=== PATIENT | female | born 1995 | race Caucasian/White ===

== ENCOUNTER 2018-05-31 16:04 | Emergency (ER) | payer MEDICAID ==
[~2018-05-31] VITALS: Ht 167.6 cm; Wt 111.0 kg
[2018-05-31 16:12] VITALS: Ht 167.6 cm; Wt 111.0 kg
[2018-05-31] MEDS ORDERED: NITR-58 PO (22:21)
--- NOTE | 2018-05-31 22:28 | ERD ---
ER Documentation Chief Complaint Chief Complaint pt bib family with c/o vag bleeding approx 6 wks HPI 22-year-old who presents for vaginal bleeding times 2 days. She is currently 6 weeks . She said the bleeding is mild. She is A0. She denies any fevers or chills. She states that she saw her LOAD OUT PERSON about 3 days ago prior to the bleeding and ultrasound done at the time was normal. Past medical history of anemia and celiac disease. ROS All systems reviewed and are negative except as per history of present illness. Medications Home Meds Active Scripts Nitrofurantoin Monohyd Macrocr* (Macrobid*) 100 Mg Capsr, 100 MG PO BID for bacteruria for 5 Days, #10 CAP Prov:ALEX HICKS DO 05/31/18 Allergies Allergies: Coded Allergies: No Known Allergy (Unverified , 05/31/18) PMhx/Soc Medical and Surgical Hx: pt denies Surgical Hx Hx Miscellaneous Medical Probl: Yes (celiac ds, anemia) Hx Alcohol Use: No Hx Substance Use: No Hx Tobacco Use: No Smoking Status: Never smoker Physical Exam Vitals Vital Signs Date Temp Pulse Resp B/P (MAP) Pulse Ox O2 O2 Flow FiO2 Time Delivery Rate 05/31/18 98.3 74 18 136/82 100 16:12 (100) Physical Exam Const: No acute distress Resp: Clear to auscultation bilaterally Cardio: Regular rate and rhythm, no murmurs Abd: Soft, non tender, non distended. Normal bowel sounds Skin: No petechiae or rashes Back: No midline or flank tenderness Ext: No cyanosis, or edema Neur: Awake and alert Psych: Normal Mood and Affect Result Diagram: 05/31/182010 Results 24 hrs Laboratory Tests Test 05/31/18 20:11 White Blood Count 9.1 10^3/ul Red Blood Count 4.51 10^6/ul Hemoglobin 13.5 g/dl Hematocrit 39.9 % Mean Corpuscular Volume 88.5 fl Mean Corpuscular Hemoglobin 29.9 pg Mean Corpuscular Hemoglobin Concent 33.8 g/dl Red Cell Distribution Width 11.9 % Platelet Count 233 10^3/UL Mean Platelet Volume 9.6 fl Immature Granulocytes % 0.300 % Neutrophils % 59.9 % Lymphocytes % 30.2 % Monocytes % 8.0 % Eosinophils % 0.9 % Basophils % 0.7 % Nucleated Red Blood Cells % 0.0 /100WBC Immature Granulocytes # 0.030 10^3/ul Neutrophils # 5.5 10^3/ul Lymphocytes # 2.8 10^3/ul Monocytes # 0.7 10^3/ul Eosinophils # 0.1 10^3/ul Basophils # 0.1 10^3/ul Nucleated Red Blood Cells # 0.0 10^3/ul Urine Color STRAW Urine Clarity CLEAR Urine pH 8.0 Urine Specific [place] 1.005 Urine Ketones NEGATIVE mg/dL Urine Nitrite NEGATIVE mg/dL Urine Bilirubin NEGATIVE mg/dL Urine Urobilinogen NEGATIVE mg/dL Urine Leukocyte Esterase 1+ Alexey/ul Urine Microscopic RBC 1 /HPF Urine Microscopic WBC 9 /HPF Urine Squamous Epithelial Cells FEW /HPF Urine Hemoglobin 3+ mg/dL Urine Glucose NEGATIVE mg/dL Urine Total Protein NEGATIVE mg/dl Beta HCG, Quantitative 95434.0 mIU/ml Procedures/MDM Medical Decision Making: Differential diagnosis includes but not limited to spontaneous , ovarian cyst, uterine fibroid, ectopic . Patient appeared well on physical examination. CBC showed no anemia, no elevated WBC to suggest systemic infection. UA did show some bacteria [place] [id number] Pelvic ultrasound showed single live intrauterine with small subcho rionic hemorrhage noted with heart rate 128 Patient advised she will need follow-up with LOAD OUT PERSON closely for likely repeat ultrasounds to follow-up on the small subchorionic hemorrhage. Patient advised if she continues to have vaginal bleeding to return to the ER in 48 hours for repeat beta-hCG level. Given bacteriuria and current patient given prescription for Macrobid. Patient advised to follow up with PCP in 1-2 days. Patient advised to return to ED for new or worsening symptoms. Patient stable on discharge from the ED. Disclaimer: Inadvertent spelling and grammatical errors are likely due to EHR/dictation software use and do not reflect on the overall quality of patient care. Also, please note that the electronic time recorded on this note does not necessarily reflect the actual time of the patient encounter. Departure Diagnosis: Primary Impression: Vaginal bleeding in patient at less than 20 weeks ges... Additional Impression: Asymptomatic bacteriuria Condition: Fair Patient Instructions: Bleeding During Early Referrals: COMM[facility]ITY CLINICS YOU HAVE RECEIVED A MEDICAL SCREENING EXAM AND THE RESULTS INDICATE THAT YOU DO NOT HAVE A CONDITION THAT REQUIRES URGENT TREATMENT IN THE EMERGENCY DEPARTMENT. FURTHER EVALUATION AND TREATMENT OF YOUR CONDITION CAN WAIT UNTIL YOU ARE SEEN IN YOUR DOCTORS OFFICE WITHIN THE NEXT 1-2 DAYS. IT IS YOUR RESPONSIBILITY TO MAKE AN APPOINTMENT FOR FOLOW-UP CARE. IF YOU HAVE A PRIMARY DOCTOR --you should call your primary doctor and schedule an appointment IF YOU DO NOT HAVE A PRIMARY DOCTOR YOU CAN CALL OUR PHYSICIAN REFERRAL HOTLINE AT IF YOU CAN NOT AFFORD TO SEE A PHYSICIAN YOU CAN CHOSE FROM THE FOLLOWING [facility] [address] [facility]. [facility] [address] [facility] [address] [facility]. [facility] [address] [facility]. [facility] [address] [facility]. [facility]. [address] Additional Instructions: Call your primary care doctor TOMORROW for an appointment during the next 1-2 days.See the doctor sooner or return here if your condition worsens before your appointment time. Return to ER in 2 days for repeat bHCG. ALEX HICKS DO May 31, 2018 22:28
[2018-05-31 22:36] VITALS: BP 122/76; PULSE 76; RESP 16
== END 2018-05-31 22:36 | disposition home or self-care (01) ==
LOC: FTE 16:04
DX: O20.9 Hemorrhage in early pregnancy, unspecified (principal); Z13.89 Encounter for screening for other disorder; Z3A.01 Less than 8 weeks gestation of pregnancy
CPT/HCPCS: 36415; 76801; 81001; 84702; 85025; 86900; 86901

== ENCOUNTER 2018-09-16 18:50 | Emergency (ER) | payer BC, MEDICAID ==
[~2018-09-16] VITALS: Ht 167.6 cm; Wt 106.8 kg
[~2018-09-16 18:50] MED LIST: NITR-58 PO
[2018-09-16 18:52] VITALS: Ht 167.6 cm; Wt 106.8 kg
[2018-09-16] MEDS ORDERED: ONDANSETRON (ODT) 4 MG TAB ODT STA (20:00)
[2018-09-16] MEDS ORDERED: LIDOCAINE/MYLANTA 40 ML BTL PO ONE (20:00)
--- NOTE | 2018-09-16 20:10 | ERD ---
ER Documentation Chief Complaint Chief Complaint 22WKS;CLEARDED BY OB;DIZZINESS ON/OFF 3MONTHS; [id number]; DENIES CP NOW HPI 22-year-old female presenting to the ED for chest pain x2 months. Patient is 22 weeks G1, . Patient was seen upstairs by OB and was cleared prior to coming down to the emergency department. Patient states the chest pain feels more like gas pain and comes and goes. The patient states it worsens after she eats heavy greasy meals. Patient denies any allergies to medications. The patient states she has a past medical history of anemia. The patient is currently taking vitamins. The patient states she does not have pain and that her symptoms have resided at this point. ROS All systems reviewed and are negative except as per history of present illness. Medications Home Meds Active Scripts Cephalexin* (Keflex*) 500 Mg Capsule, 500 MG PO BID for 3 Days, CAP Prov:MULUGETA AYALA PA-C 09/16/18 Famotidine* (Pepcid*) 20 Mg Tablet, 20 MG PO BID for 4 Days, TAB Prov:MULUGETA AYALA PA-C 09/16/18 Magaldrate/Simethicone* (Mylanta*) 355 Ml Susp, 30 ML PO QID PRN for GA STROINTESTINAL UPSET, #1 BOTTLE Prov:MULUGETA AYALA PA-C 09/16/18 Metoclopramide* (Reglan*) 10 Mg Tablet, 10 MG PO Q6 PRN for NAUSEA AND/OR VOMITING, #10 TAB Prov:MULUGETA AYALA PA-C 09/16/18 Allergies Allergies: Coded Allergies: No Known Allergy (Unverified , 09/16/18) PMhx/Soc Medical and Surgical Hx: pt denies Surgical Hx History of Surgery: No Anesthesia Reaction: No Hx Neurological Disorder: No Hx Respiratory Disorders: No Hx Cardiac Disorders: No Hx Miscellaneous Medical Probl: Yes (celiac ds, anemia, anxiety) Hx Alcohol Use: No Hx Substance Use: No Hx Tobacco Use: No Smoking Status: Never smoker FmHx Family History: No diabetes, No coronary disease, No other Physical Exam Vitals Vital Signs Date Temp Pulse Resp B/P (MAP) Pulse Ox O2 O2 Flow FiO2 Time Delivery Rate 09/16/18 97.8 82 18 122/69 99 Room Air 20:54 (86) 09/16/18 97.7 77 18 139/78 98 18:52 (98) Physical Exam Const: No acute distress Head: Atraumatic Eyes: Normal Conjunctiva ENT: Normal External Ears, Nose and Mouth. Neck: Full range of motion. No meningismus. Resp: Clear to auscultation bilaterally Cardio: Regular rate and rhythm, no murmurs Abd: Soft, non tender, non distended. Normal bowel sounds Skin: No petechiae or rashes Back: No midline or flank tenderness Ext: No cyanosis, or edema Neur: Awake and alert Psych: Normal Mood and Affect Results 24 hrs Laboratory Tests Test 09/16/18 20:13 Urine Color YELLOW Urine Clarity CLOUDY Urine pH 7.0 Urine Specific [place] 1.014 Urine Ketones NEGATIVE mg/dL Urine Nitrite NEGATIVE mg/dL Urine Bilirubin NEGATIVE mg/dL Urine Urobilinogen NEGATIVE mg/dL Urine Leukocyte Esterase 1+ Alexey/ul Urine Microscopic RBC 2 /HPF Urine Microscopic WBC 6 /HPF Urine Squamous Epithelial Cells MODERATE /HPF Urine Amorphous Crystals MODERATE /HPF Urine Bacteria FEW /HPF Urine Hemoglobin NEGATIVE mg/dL Urine Glucose NEGATIVE mg/dL Urine Total Protein NEGATIVE mg/dl Current Medications Medications Dose Sig/Debora Start Time Status Last (Trade) Ordered Route PRN Stop Time Admin Dose Reason Admin 40 ml ONCE ONCE 09/16/18 DC 09/16/18 Miscellaneous PO 20:00 20:12 Medication 09/16/18 20:01 (Gi Cocktail (2)) Ondansetron 4 mg ONCE STAT 09/16/18 DC 09/16/18 HCl (Zofran ODT 20:00 20:12 Odt) 09/16/18 20:01 Procedures/MDM KG: Read by attending physician. EKG shows normal sinus rhythm at rate of 86 No arrhythmias, acute ST elevations or T wave changes were noted. Medications been in the ER: GI cocktail Patient tolerated medication well with no adverse reactions. Patient reported improvement in pain. Medical decision makin-year-old female presented to ED for chest pain and dizziness x2 months. She was seen upstairs by OB and was cleared to come to the ED. Patient states the pain feels more as gas pain and she points to her mid chest region. She states the pain is no longer there but came on earlier today. Patient states the pain tends to come on after she eats heavy foods. Patient states that she has tried some Tums at home which has not helped. Patient's EKG was unremarkable. The patient was given a GI cocktail for symptoms. Patient's UA came back positive for UTI. The patient's lungs were clear bilateral the patient is not complaining of any shortness of breath at this time. On reevaluation the patient appears to be doing much better and states the GI cocktail has helped her symptoms. At this time I have low suspicion for CA, pneumonia, PE ectopic , ruptured ectopic , molar , subchorionic hematoma, spontaneous , incomplete , complete , missed , placental abruption, placental previa, vasa previa, uterine rupture, anembyronic . I advised the patient that she does a UTI and working to treat her outpatient with Keflex and advised her that she needs to follow-up with her OB this week regarding this visit. Advised the patient symptoms worsen return to ER immediately. The patient had no further questions upon discharge and is agreement to the treatment plan Prescription for home: Sixto Iniguez Keflex I have discussed with the patient proper use and common side effects to expert with the medication . I advised the patient/family to speak with the pharmacist dispensing the medication to be advised of any potential drug interactions with other medication or supplements they may be taking. Discharge: At this time, patient is stable for discharge and outpatient management. I have instructed the patient to follow-up with his\her primary care physician in 1 to 2 days. I have discussed with the patient the possibility of needing to see a specialist for further work-up and imaging studies if symptoms persist. I have instructed the patient to promptly return to the ER for any new or worsening s ymptoms including increased pain, fever, nausea, vomiting, weakness or LOC. The patient and\or family expressed understanding of and agreement with this plan. All questions were answered. Home care instructions were provided. Disclaimer: Inadvertent spelling and grammatical errors are likely due to EHR\dictation software use and do not reflect on the overall quality of patient care. Also, please note that the electronic time recorded on the note does not necessarily reflect the actual time of the patient encounter. Departure Diagnosis: Primary Impression: GERD (gastroesophageal reflux disease) Esophagitis presence: without esophagitis Qualified Codes: K21.9 - Gastro- esophageal reflux disease without esophagitis Additional Impression: UTI in Trimester: second trimester Qualified Codes: O23.42 - Unspecified infection of urinary tract in , second trimester Condition: MULUGETA Conner PA-C Sep 16, 2018 20:10
[2018-09-16] MEDS ORDERED: METO10TA92 PO (20:13)
[2018-09-16] MEDS ORDERED: FAMO-96 PO (20:13)
[2018-09-16] MEDS ORDERED: MAG-19 PO (20:13)
[2018-09-16] MEDS ORDERED: CEPH-443 PO (20:46)
[2018-09-16 20:54] VITALS: BP 122/69; PULSE 82; RESP 18
== END 2018-09-16 20:57 | disposition home or self-care (01) ==
LOC: FTE 18:50
DX: O99.612 Diseases of the digestive system complicating pregnancy, second trimester (principal); K21.9 Gastro-esophageal reflux disease without esophagitis; O23.42 Unspecified infection of urinary tract in pregnancy, second trimester; Z3A.22 22 weeks gestation of pregnancy
CPT/HCPCS: 81001; 93005

== ENCOUNTER 2018-12-17 13:54 | Outpatient (CLI) | payer BC, MEDICAID ==
[~2018-12-17] VITALS: Ht 167.6 cm; Wt 111.9 kg
[~2018-12-17 13:54] MED LIST changes: +FAMO-96 PO; +MAG-19 PO; +METO10TA92 PO; -NITR-58 PO; +PREN-93 PO
[2018-12-17 14:33] VITALS: BP 123/68; PULSE 90; RESP 18; Ht 167.6 cm; Wt 111.9 kg
== END 2018-12-17 18:01 | disposition home or self-care (01) ==
LOC: OBT 13:54 → L-D 13:54 → OBT 18:01
PROVIDERS: ATTEND Obstetrics & Gynecology
DX: O46.8X3 Other antepartum hemorrhage, third trimester (principal); Z3A.35 35 weeks gestation of pregnancy
CPT/HCPCS: 76815; 76817; 76818; 81001; 85025; G0463